=== PATIENT | female | born 1960 | race Caucasian/White ===

== ENCOUNTER → 2017-05-17 16:43 | Outpatient (CLI) | payer MEDICAID | END | disposition home or self-care (01) | LOC: D.MAMMO 13:00 | DX: Z12.31 Encounter for screening mammogram for malignant neoplasm of breast (principal) ==

== ENCOUNTER → 2018-10-17 09:33 | Outpatient (CLI) | payer OTHER ==
--- NOTE | 2018-10-19 14:03 | EC ---
PATIENT:DORIS MENJIVAR DATE OF SERVICE: 10/17/18 SEX: F MEDICAL RECORD: [id number] DATE OF : [birth year] LOCATION:[facility] AGE OF PATIENT: 57 ADMISSION DATE: 10/17/18 REFERRING PHYSICIAN: INTERPRETING PHYSICIAN: LADAN SHABAZZ MD ECHOCARDIOGRAM REPORT ECHO CHARGES 4 ECHO COMPLETE Date: 10/17/18 CLINICAL DIAGNOSIS: MURMUR,HX MVP/ARRHTYHMIA ECHOCARDIOGRAPHIC MEASUREMENTS (adult normal given) AC root (d.<3.7cm) 3.7 cm LV Septum d (<1.2 cm> 1.2 cm Valve Excursion 1.0 cm LV Septum (systole) 1.4 cm Left Atria (s.<4.0cm> 3.7 cm LVPW d(<1.2cm) 1.4 cm RV (d.<2.3cm) 3.5 cm LVPW (sytole) 1.5 cm LV diastole(<5.6CM) 5.3 cm MV E-F(>70mm/sec) cm LV systole 3.5 cm LVOT Diameter 2.2 cm MV exc.(>10mm) 2.1 cm Est.ejection fraction (50-75%) % DOPPLER: LVIT cm/sec A 59.0 cm/sec E 48.0 cm/sec LA cm/sec RVSP 18 mmHg LVOT 85 cm/sec AOP1/2T m/s Asc. 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 Ruth TAPE# PACS Pericardial Effusion N DATE OF SERVICE: Adequate 2D, color flow, spectral Doppler, and M-Mode. No LVH. LV internal dimension is normal. Wall motion is normal. EF is greater than or equal to 55%. Aortic valve is tricuspid. No evidence of stenosis by Doppler interrogation. Left atrium is normal at 3.7 cm. Mitral valve shows mild redundancy, no true prolapse. Mild MR. Right-sided chambers grossly normal. Trace TR. TRANSINT:[id number] Voice Confirmation ID: [id number] DOCUMENT ID: [id number] ECHOCARDIOGRAM REPORT [id number] DORIS MENJIVAR,LADAN Worley MD at 1403 CC: [id number] DICTATION DATE: 10/18/18 1302 SECOND HAND: 10/18/18 1315 DEP CLI 10/17/18 [place] [id number] [place] [id number]
--- NOTE | 2018-10-21 16:51 | ST ---
PATIENT:DORIS MENJIVAR MEDICAL RECORD: [id number] SEX: F LOCATION:[facility] ORDER #: ADMISSION DATE: 10/17/18 AGE OF PATIENT: 57 REFERRING PHYSICIAN: INTERPRETING PHYSICIAN: SUSANA HARDIN MD DATE OF SERVICE: 10/17/2018 Nuclear Stress Test INDICATION: Angina, shortness of breath, hypertension. She was exercised on standard John protocol for 5 minutes achieving greater than 85% of maximum target heart rate response with 28 mCi of sestamibi injected at peak stress, 9 mCi used previously for rest images. FINDINGS: Gated SPECT reveals preserved ejection fraction at 65% with good wall motion and thickening and brightening throughout all segments. SPECT imaging Cardiolite was used as myocardial fusion agent. There is homogeneous uptake throughout all segments at rest and stress with no evidence of inducible ischemia or previous infarction. OVERALL IMPRESSION: 1. This is a normal nuclear stress test with no evidence of inducible ischemia or previous infarction. 2. Gated SPECT reveals a preserved ejection fraction at 65%. In this patient with ongoing symptomatology, the current scan does not suggest the presence of hemodynamically significant coronary artery disease. Evaluate noncardiac etiology of chest pain. TRANSINT:[id number] Voice Confirmation ID: [id number] DOCUMENT ID: [id number] SUSANA HARDIN MD at 1651 CC: LADAN PERKINS V [id number] DICTATION DATE: 10/18/18 1617 BOTTOM CAGER: 10/19/18 0143 DEP CLI 10/17/18 [place] [id number]
== END | disposition home or self-care (01) ==
LOC: D.HCCARDIO 09:33
PROVIDERS: ATTEND Internal Medicine Interventional Cardiology
DX: I20.9 Angina pectoris, unspecified (principal)

== ENCOUNTER → 2020-07-22 09:03 | Outpatient (CLI) | payer MEDICARE | END | disposition home or self-care (01) | LOC: D.HCCECHO 09:03 | PROVIDERS: ATTEND Internal Medicine Interventional Cardiology | DX: I10 Essential (primary) hypertension (principal) ==